=== PATIENT | female | born 1960 | race Caucasian/White ===

== ENCOUNTER 2022-11-08 23:34 | Emergency (ER) | payer MEDICAID ==
[~2022-11-08] VITALS: Ht 167.6 cm; Wt 73.0 kg
[2022-11-08 23:40] VITALS: TEMP 98; O2SAT 96
[2022-11-09] MEDS ORDERED: HYDROCODONE/ACETAMINOPHEN 5/325MG TABLET PO STA (01:13)
[2022-11-09] MEDS ORDERED: HYDR-4001 MT (03:43)
[2022-11-09] MEDS ORDERED: NAPR-681 PO (03:43)
[2022-11-09] MEDS ORDERED: KETOROLAC 30MG/ML VIAL IM STA (03:51)
[2022-11-09 04:15] VITALS: BP 126/66; PULSE 84; RESP 16
[2022-11-09] MEDS ORDERED: KETOROLAC 30MG/ML VIAL IM NR (04:15)
[2022-11-09] MEDS ORDERED: HYDROCODONE/ACETAMINOPHEN 5/325MG TABLET PO NR (04:15)
== END 2022-11-09 05:34 | disposition home or self-care (01) ==
LOC: ER 23:34
DX: S82.302A Unspecified fracture of lower end of left tibia, initial encounter for closed fracture (principal); S82.402A Unspecified fracture of shaft of left fibula, initial encounter for closed fracture; E11.9 Type 2 diabetes mellitus without complications; Z85.3 Personal history of malignant neoplasm of breast; W19.XXXA Unspecified fall, initial encounter; Y93.89 Activity, other specified; Y92.89 Other specified places as the place of occurrence of the external cause; Y99.8 Other external cause status
CPT/HCPCS: 99284; 73590; 73610; 96372; J1885; Z7610